=== PATIENT | male | born 1970 | race Caucasian/White ===

== ENCOUNTER 2017-04-24 23:42 | Emergency (ER) | payer BC ==
--- NOTE | 2017-04-24 23:48 | PDOC ---
History of Present Illness - General Chief Complaint: Pain, Acute Stated Complaint: GROIN/ABD PAIN Time Seen by Provider: 04/24/17 23:45 - History of Present Illness Initial Comments: This otherwise healthy 46-year-old man presents with a 2 day history of right flank/groin pain. Patient first noted symptoms yesterday. He describes pain in the right flank and also in the right pelvis/scrotal area. Overnight, pain resolved and patient was able to work today. In the last few hours prior to presentation, he had recurrence of pain. Denies nausea/vomiting. He has had no fever/chills/dysuria/hematuria. No previous history of renal colic or other acute genitourinary acute process. No family history of kidney stones. Past History - Past Medical History Allergies/Adverse Reactions: Allergies Allergy/AdvReac Type Severity Reaction Status Date / Time No Known Allergies Allergy Unverified 04/24/17 23:44 Home Medications: Ambulatory Orders Oxycodone HCl/Acetaminophen [Percocet 5-325 mg Tablet] 1 tab PO Q6H PRN #10 tablet MDD 3 tabs 04/25/17 Tamsulosin HCl [Flomax] 0.4 mg PO DAILY #10 capsule 04/25/17 Review of Systems - Review of Systems Able to Perform ROS?: Yes Comments:: 12 point review of systems is negative except for what is noted in the history of present illness *Physical Exam - Physical Exam Comments: GENERAL: Adult male, alert and oriented 3, in moderate distress secondary to flank/groin pain HEAD: Normal with no signs of trauma. EYES: PERRLA, EOMI, sclera anicteric, conjunctiva clear. ENT: Ears normal, nares patent, oropharynx clear without exudates. Dry mucous membranes. NECK: Normal range of motion, supple without lymphadenopathy, JVD, or masses. LUNGS: Breath sounds equal, clear to auscultation bilaterally. No wheezes, and no crackles. HEART:Regular rate and rhythm, normal S1 and S2 without murmur, rub or gallop. ABDOMEN:.normal bowel sounds No guarding or rebound.No masses No distention. Mild right flank tenderness; no scrotal masses/ tenderness EXTREMITIES: Normal range of motion, no edema. No clubbing or cyanosis. No erythema, or tenderness. NEUROLOGICAL: Cranial nerves II through XII grossly intact. Normal speech. No focal neurological deficits. MUSCULOSKELETAL: Back non-tender to palpation, no CVA tenderness SKIN: Warm, Dry, normal turgor, no rashes or lesions noted. ED Treatment Course - LABORATORY CBC & Chemistry Diagram: 04/25/17 00:55 04/25/17 00:55 Progress Note - Progress Note Progress Note: Clinical urinalysis shows 3+ blood(30-40 RBCs/3-5 WBCs) Clinical presentation most consistent with renal colic. Patient given a liter normal saline IV hydration with 30 mg Toradol IV Patient had significant relief after hydration and Toradol IV. Renal stone protocol spiral CT performed. This showed moderate right hydronephrosis/hydroureter with 2 mm stone in the distal right ureter. Patient recurrence of pain, requiring Dilaudid 1 mg IV and additional liter of normal saline. Subsequent nausea also required Zofran 4 mg IV. Prior to discharge, Patient also required Percocet one tablet by mouth. Patient will be discharged with prescription for Percocet 5/325 (#10) to be used up to 3 times a day as needed for severe pain. He can also take acetaminophen/naproxen/ibuprofen as needed for [id number] pain. Patient does not have urologist and will be given Dr. Denise's referral information, with whom he should follow-up within 1 week. He also should strain all urine and retain any stone fragments that are found. Patient should return to the emergency room if he has persistent, severe pain or vomiting/fever *DC/Admit/Observation/Transfer Diagnosis at time of Disposition: Renal colic on right side - Discharge Dispostion Disposition: HOME Condition at time of disposition: Stable - Prescriptions Prescriptions: Oxycodone HCl/Acetaminophen [Percocet 5-325 mg Tablet] 1 tab PO Q6H PRN #10 tablet MDD 3 tabs PRN Reason: Severe Pain Tamsulosin HCl [Flomax] 0.4 mg PO DAILY #10 capsule - Referrals Referrals: Juice Denise MD., MD [Staff Physician] - - Patient Instructions Printed Discharge Instructions: Kidney Stones -- Adult Additional Instructions: Drink plenty of water Flomax 0.4 mg daily until seen by urologist Strain all urine and keep any stone fragments for analysis Ibuprofen/naproxen/acetaminophen as needed for [id number] pain Percocet 5/325 up to 3 times a day as needed for severe pain Return to ER if you have persistent severe pain or develop fever/vomiting Follow-up with urologist (Dr. Denise) within the next 5 days - Post Discharge Activity
[2017-04-24 23:55] LABS: PH,URINE 5.5 (4.5-8); URINE APPEARANCE Clear; URINE BILIRUBIN Negative (NEGATIVE); URINE GLUCOSE (UA) Negative (NEGATIVE); URINE KETONE Negative (NEGATIVE); URINE LEUK ESTERASE Negative (NEGATIVE); URINE NITRITE Negative (NEGATIVE); URINE PROTEIN Negative (NEGATIVE); URINE UROBILINOGEN 0.2 (0.2-1.0)
[2017-04-24] MEDS ORDERED: KETOROLAC TROMETHAMINE 30 MG/1 ML VIAL IVPUSH ONE (23:55)
[2017-04-24] MEDS ORDERED: SODIUM CHLORIDE 1,000 ML IV STA (23:55)
[2017-04-24 23:56] LABS: URINE BLOOD 3+ (NEGATIVE); URINE COLOR YELLOW
[2017-04-24] MEDS ORDERED: KETOROLAC TROMETHAMINE 30 MG/1 ML VIAL ONE (23:58)
[2017-04-25 00:09] VITALS: TEMP 98.7; BMI 33.0
[2017-04-25 00:13] LABS: URINE RBC 20-30 /hpf (0-3)
[2017-04-25 00:14] LABS: URINE MUCUS 1+
[2017-04-25 00:53] VITALS: BP 109/65; PULSE 77
[2017-04-25 01:33] LABS: MEAN CELL VOLUME 87.7 fl (80-96); WHITE BLOOD COUNT 10.9 K/mm3 (4.0-10.0)
[2017-04-25 01:34] LABS: MCH 30.8 pg (25.7-33.7); MCHC 35.1 g/dl (32.0-35.9); PLATELET COUNT 120 K/MM3 (134-434); RDW 12.6 % (11.9-15.9)
[2017-04-25 01:35] LABS: MEAN PLT VOLUME 53.7 fl (7.5-11.1)
[2017-04-25 01:44] LABS: ALBUMIN 4.2 g/dl (3.4-5.0); ANION GAP 9 (8-16); BILIRUBIN,TOTAL 0.5 mg/dL (0.2-1.0); CALCIUM 9.3 mg/dL (8.5-10.1); CO2 30 mmol/L (21-32); CREATININE 1.4 mg/dL (0.7-1.3); GLUCOSE,RANDOM 105 mg/dL (74-106); SGOT/AST 23 U/L (15-37); SGPT/ALT 40 U/L (12-78); TOT PROT 7.7 g/dl (6.4-8.2)
[2017-04-25 01:46] LABS: ALK PHOS 72 U/L (45-117)
[2017-04-25] MEDS ORDERED: HYDROmorphone HCL CARPU-JECT 1 MG/1 ML DISP.SYRIN IVPUSH ONE (01:49)
[2017-04-25] MEDS ORDERED: SODIUM CHLORIDE 1,000 ML IV STA (01:50)
[2017-04-25] MEDS ORDERED: TAMSULOSIN HCL 0.4 MG CAP.ER.24H (FP) PO ONE (01:50)
[2017-04-25] MEDS ORDERED: TAMSULOSIN HCL 0.4 MG CAP.ER.24H (FP) ONE (01:59)
[2017-04-25] MEDS ORDERED: HYDROmorphone HCL CARPU-JECT 1 MG/1 ML DISP.SYRIN ONE (01:59)
[2017-04-25] MEDS ORDERED: ONDANSETRON 4 MG/2 ML VIAL IVPUSH ONE (02:55)
[2017-04-25] MEDS ORDERED: ONDANSETRON 4 MG/2 ML VIAL ONE (03:00)
== END 2017-04-25 03:23 | disposition home or self-care (01) ==
LOC: FER 23:42
PROC: 3E033NZ Introduction of Analgesics, Hypnotics, Sedatives into Peripheral Vein, Percutaneous Approach (ICD-10-PCS; principal; 2017-04-24)
PROC: 3E0333Z Introduction of Anti-inflammatory into Peripheral Vein, Percutaneous Approach (ICD-10-PCS; 2017-04-24)
PROC: 3E033GC Introduction of Other Therapeutic Substance into Peripheral Vein, Percutaneous Approach (ICD-10-PCS; 2017-04-24)
PROC: 3E0337Z Introduction of Electrolytic and Water Balance Substance into Peripheral Vein, Percutaneous Approach (ICD-10-PCS; 2017-04-24)
DX: N23 Unspecified renal colic (principal)
CPT/HCPCS: 36415; 74176; 80053; 81003; 81015; 85025; 99282-25